=== PATIENT | male | born 1940 | race Caucasian/White ===

== ENCOUNTER 2019-12-16 01:52 | Outpatient (CLI) | payer OTHER, SELFPAY ==
[2019-12-16 18:23] LABS: SARS-CoV-2 RNA PCR Negative
== END 2019-12-16 01:53 | disposition home or self-care (01) ==
LOC: ANHCOVIDDT 01:52
PROVIDERS: PCP Internal Medicine; Visit Provider Internal Medicine Gastroenterology
DX: Z01.812 Encounter for preprocedural laboratory examination (principal); Z20.828 Contact with and (suspected) exposure to other viral communicable diseases
CPT/HCPCS: 87635; C9803; U0003

== ENCOUNTER 2019-12-18 00:51 | Day surgery (SDC) | payer OTHER, SELFPAY ==
[2019-12-10 14:47] VITALS: BMI 32.1
[2019-12-18] MEDS: LACTATED RINGERS 1,000 ML 150 ML IV CONT (08:33)
[2019-12-18] MEDS: AMPICILLIN 2 GM/NS 100 ML 2 GM/100 ML BAG IVPB (08:34)
[2019-12-18 08:38] VITALS: BP 135/85; PULSE 90; RESP 17; TEMP 36.4; O2SAT 97; BMI 32.0
--- NOTE | 2019-12-18 08:54 | WPDGICN ---
Assessment and Plan Assessment and plan (1) History of colon polyps: Code(s): Z86.010 - Personal history of colonic polyps Status: Acute Assessment and Plan: Plan is for follow-up colonoscopy at this time. In 2017 patient had multiple adenomatous colon polyps. Family history is significant his mother had colon cancer as well. Plan is for screening colonoscopy now and every 3-5 years in the future. further recommendations may be given after endoscopy. (2) Family history of colon cancer in mother: Code(s): Z80.0 - Family history of malignant neoplasm of digestive organs Status: Acute GI Consult Note Consult date/time: 12/18/19 08:54 HPI: Dayo Bernardo is a 79 year old male Seen in evaluation at the request of Dr.Paul Hunter. Patient has a history of adenomatous colon polyps removed from the colon 3 years ago. His current weight appetite bowel movements are normal. He denies abdominal pain. He has no blood in his stools. His bowel habits are described as regular. Family history is significant that his mother had colon cancer on 2 occasions. Review of Systems Review of Systems: All systems reviewed & are unremarkable except as noted in HPI and below PMFSH Past Medical History Medical History BPH (benign prostatic hyperplasia) Surgical History Surgical History History of hip replacement Family History Family History Mother Carcinoma of colon Social History Social History Smoking end date: 04/23/79 Alcohol intake: current Meds Home Medications and Allergies Home Medications Medication Instructions Recorded Confirmed Type amlodipine 10 mg PO DAILY 03/02/19 12/18/19 History finasteride 5 mg PO DAILY 03/02/19 12/18/19 History lisinopril 40 mg PO DAILY 03/02/19 12/18/19 History tadalafil [Cialis] 5 mg PO DAILY 03/02/19 12/18/19 History tamsulosin [Flomax] 0.4 mg PO HS 03/02/19 12/18/19 History terazosin 5 mg PO HS 03/02/19 12/18/19 History aspirin [Adult Low Dose Aspirin] 81 mg PO DAILY 12/10/19 12/18/19 History Allergies Allergy/AdvReac Type Severity Reaction Status Date / Time No Known Allergies Allergy Verified 12/18/19 08:26 Vital Signs Vital Signs - 24 hr 12/18/19 08:38 Temperature 97.6 F Pulse Rate 90 Respiratory Rate 17 Blood Pressure 135/85 Pulse Oximetry 97 Exam Narrative: Exam Narrative: Physical exam reveals patient to be alert. Vital signs stable. HEENT exam unremarkable. Lungs are clear to auscultation and percussion. Heart is without murmur or extra sounds. Abdominal exam bowel sounds are present soft nontender with no organomegaly. Digital external rectal exam is normal.
--- NOTE | 2019-12-18 09:09 | WPDANESEPPF ---
Anes - Initial Pre Proc Eval Procedure: Operation Date: 12/18/19 09:30 Proposed Procedures p Screening Colonoscopy - Jesus Yan MD Date/Time: 12/18/19 09:09 Surgeon: Jesus Yan MD Pre Op Diagnosis: HX COLON POLYPS, FAMILY HX COLON CA Patient Data Age: 79 Gender: M Height: 5 ft 11 in Weight: 104.2 kg Last Vital Signs Temp 97.6 F 12/18/19 08:38 Pulse 90 12/18/19 08:38 Resp 17 12/18/19 08:38 BP 135/85 12/18/19 08:38 Pulse Ox 97 12/18/19 08:38 Allergies Allergy/AdvReac Type Severity Reaction Status Date / Time No Known Allergies Allergy Verified 12/18/19 08:26 Home Medications Medication Instructions Recorded Confirmed Type amlodipine 10 mg PO DAILY 03/02/19 12/18/19 History finasteride 5 mg PO DAILY 03/02/19 12/18/19 History lisinopril 40 mg PO DAILY 03/02/19 12/18/19 History tadalafil [Cialis] 5 mg PO DAILY 03/02/19 12/18/19 History tamsulosin [Flomax] 0.4 mg PO HS 03/02/19 12/18/19 History terazosin 5 mg PO HS 03/02/19 12/18/19 History aspirin [Adult Low Dose Aspirin] 81 mg PO DAILY 12/10/19 12/18/19 History Patient hx anesthesia problems: none Family hx anesthesia problems: none PMFSH Past Medical History Medical History BPH (benign prostatic hyperplasia) Surgical History Surgical History History of hip replacement Family History Family History Mother Carcinoma of colon Social History Social History Smoking end date: 04/23/79 Alcohol intake: current Anes - Eval Final PreProcedure Day of Procedure 12/18/19 09:09 Patient weight: overweight Heart: regular rate and rhythm Lungs: clear to auscultation Airway: Mallampati scale class III Neurological: alert and oriented Last oral intake: >/= 8 hours ASA classification: II Emergent: no Anesthetic plan: proceed Anesthesia type and monitoring: general GIVS and standard monitoring Informed Consent: The patient's anesthetic plan and its attendant risks and benefits were discussed with the patient/family/POA. Questions were solicited and answers provided to the satisfaction of the patient/family/POA.
[2019-12-18 09:41] VITALS: BP 123/104; PULSE 70; RESP 19; O2SAT 93
[2019-12-18 09:51] VITALS: BP 123/104; PULSE 65; RESP 17; O2SAT 96
== END 2019-12-18 10:13 | disposition home or self-care (01) ==
PROVIDERS: PCP Internal Medicine; Visit Provider Internal Medicine Gastroenterology
PROC: 0DJD8ZZ Inspection of Lower Intestinal Tract, Via Natural or Artificial Opening Endoscopic (ICD-10-PCS; CPT 45378; principal; 2019-12-18 09:30)
DX: Z12.11 Encounter for screening for malignant neoplasm of colon (principal); Z86.010 Personal history of colon polyps; Z80.0 Family history of malignant neoplasm of digestive organs; K64.8 Other hemorrhoids
CPT/HCPCS: G0105; J0290; J2704; J7120

== ENCOUNTER 2021-06-23 20:47 | Emergency (ER) | payer OTHER, SELFPAY ==
[2021-06-23 20:50] VITALS: BP 158/82; PULSE 115; RESP 18; TEMP 36.6; O2SAT 97
[2021-06-23 21:05] VITALS: BP 145/87; PULSE 100; RESP 17; O2SAT 97
--- NOTE | 2021-06-23 21:25 | PC.NURSE ---
attempted to place Bar catheter, unable to; then attempted to place coude, unable to at this time provider aware
--- NOTE | 2021-06-23 21:51 | ED.MALEGU ---
HPI - Male Genitourinary General Chief complaint: Urogenital-Male Stated complaint: difficulty urinating Time Seen by Provider: 06/23/21 20:55 History of Present Illness HPI Narrative: Patient is a 80-year-old male who presents ER with urinary retention. This is been a recurrent issue for him. Last time was 2 years ago. Reports he drank a lot of water today and then took a nap. He has been unable to urinate since this afternoon. Reports he finished ciprofloxacin for UTI 5 days ago. Has not been having hematuria or dysuria. No pain in his groin. Reports lower abdominal discomfort that is worse with palpation and movement. Related Data Home Medications Medication Instructions Recorded Confirmed amlodipine 10 mg PO DAILY 03/02/19 12/18/19 finasteride 5 mg PO DAILY 03/02/19 12/18/19 lisinopril 40 mg PO DAILY 03/02/19 12/18/19 tadalafil [Cialis] 5 mg PO DAILY 03/02/19 12/18/19 tamsulosin [Flomax] 0.4 mg PO HS 03/02/19 12/18/19 terazosin 5 mg PO HS 03/02/19 12/18/19 aspirin [Adult Low Dose Aspirin] 81 mg PO DAILY 12/10/19 12/18/19 Allergies Allergy/AdvReac Type Severity Reaction Status Date / Time No Known Allergies Allergy Verified 06/23/21 20:52 Review of Systems Constitutional: Constitutional: Denies chills, Denies fever(s) and Denies weakness Gastrointestinal: Gastrointestinal: Reports abdominal pain, Denies nausea and Denies vomiting Genitourinary: Genitourinary: Denies hematuria, Reports oliguria, Denies dysuria and Denies urinary frequency [facility] Past Medical History Medical History (Updated 06/23/21 @ 23:07 by Eleazar Mayfield MD) BPH (benign prostatic hyperplasia) Surgical History Surgical History History of hip replacement Family History Family History Mother Carcinoma of colon Social History Social History Smoking end date: 04/23/79 Alcohol intake: current Exam Narrative: GENERAL: Well-appearing, well-nourished, and in no acute distress. HEAD: Normocephalic, atraumatic. CHEST: Clear to auscultation. No respiratory distress. HEART: Regular rate and rhythm. Normal peripheral pulses. ABDOMEN: Soft, bladder palpable at the umbilicus with tenderness. : Normal-appearing external genitalia with uncircumcised penis, no swelling to the scrotum/testicles. EXTREMITIES: Normal range of motion. No edema. SKIN: Warm, dry, no rash. NEURO: Alert and oriented x3. Course Course Emergency Course: Urinary catheter placed due to obstruction. Just over 2000 mL return. No blood. No evidence of infection. We will keep in Bar and can follow-up with urology for removal. Vital Signs Vital signs: Vital Signs Temperature 97.8 F 06/23/21 20:50 Pulse Rate 115 H 06/23/21 20:50 Respiratory Rate 18 06/23/21 20:50 Blood Pressure 158/82 H 06/23/21 20:50 Pulse Oximetry 97 06/23/21 20:50 Temperature 97.8 F 06/23/21 20:50 Pulse Rate 89 06/23/21 22:36 Respiratory Rate 16 06/23/21 22:36 Blood Pressure 138/74 06/23/21 22:36 Pulse Oximetry 99 06/23/21 22:36 MDM - Male Genitourinary Lab Data Result diagrams: 06/23/21 21:45 06/23/21 21:45 Labs: Lab Results 06/23/21 06/23/21 06/23/21 Range/Units 21:45 21:45 21:45 WBC 5.0 (4.5-10.0) K/mm3 RBC 4.88 (4.6-6.20) M/mm3 Hgb 15.4 (14.0-18.0) g/dL Hct 46.0 (42.0-52.0) % MCV 94.3 (80-100) fl MCH 31.6 (26-34) pg MCHC 33.5 (32-36) g/dl RDW 12.7 (11.5-14.5) % Plt Count 171 (150-375) k/mm3 MPV 11.1 H (7.4-10.4) fl Immature Gran % (Auto) 0.4 (0-0.5) % Neut % (Auto) 69.6 (45.5-73.1) % Lymph % (Auto) 18.0 L (18.3-44.2) % Falls % (Auto) 7.4 (2.6-8.5) % Eos % (Auto) 3.8 (0-4.4) % Baso % (Auto) 0.8 (0.2-1.2) % Lymph # (Auto) 0.90 (0.9-3.2) K/mm3 Falls # (Auto)
[2021-06-23 21:55] LABS: Basophils Percent Auto 0.8 % (0.2-1.2); Eosinophils Absolute Auto 0.2 K/mm3 (0-0.3); Eosinophils Percent Auto 3.8 % (0-4.4); Hemoglobin 15.4 g/dL (14.0-18.0); Immature Granulocyte Absolute 0.02 K/mm3 (0.00-0.031); Immature Granulocyte Percent A 0.4 % (0-0.5); Mean Corpuscular HGB Conc 33.5 g/dl (32-36); Mean Corpuscular Hemoglobin 31.6 pg (26-34); Mean Corpuscular Volume 94.3 fl (80-100); Mean Platelet Volume 11.1 fl (7.4-10.4); Monocytes Absolute Auto 0.4 K/mm3 (0.1-0.6); Monocytes Percent Auto 7.4 % (2.6-8.5); Neutrophils Absolute Auto 3.5 K/mm3 (1.3-6.7); Neutrophils Percent Auto 69.6 % (45.5-73.1); Platelet Count Result 171 k/mm3 (150-375); Red Blood Count 4.88 M/mm3 (4.6-6.20); Red Cell Distribution Width 12.7 % (11.5-14.5)
[2021-06-23 22:00] LABS: Add Urine Microscopic? YES; Appearance Urine Clear (Clear); Bilirubin Urine Negative (Negative); Blood Urine 3+ (Negative); Color Urine Straw (Yellow); Glucose Urine UA Negative (Negative); Ketones Urine Negative (Negative); Leukocyte Esterase Ur Negative LEU/UL (Negative); Mucus Urine Rare /lpf; Nitrate Urine Negative (Negative); Protein Urine Negative (Negative); Urobilinogen Urine Negative mg/dL (<2.0); WBC Urine 0-3 /hpf
[2021-06-23 22:01] LABS: Specific Grav Ur 1.004 (1.001-1.035)
[2021-06-23 22:03] LABS: Anion Gap 12 mmol/L (8-16); Blood Urea Nitrogen 18 mg/dL (9-20); Carbon Dioxide 22 mmol/L (22-30); Chloride 109 mmol/L (98-107); Estimated CRCL calculation 72 ml/min; Estimated Glomerular Filt Rate > 60; Glucose 104 mg/dL (65-110); Potassium 4.2 mmol/L (3.4-5.0); Sodium 143 mmol/L (137-145)
[2021-06-23 22:36] VITALS: BP 138/74; PULSE 89; RESP 16; O2SAT 99
[2021-06-23] MEDS: LIDOCAINE HCL 2% GEL UROJET 10 ML PKG (22:37)
== END 2021-06-23 23:40 | disposition home or self-care (01) ==
PROVIDERS: Emergency Provider Emergency Medicine; PCP Internal Medicine
DX: N40.1 Benign prostatic hyperplasia with lower urinary tract symptoms (principal); R33.8 Other retention of urine; Z79.82 Long term (current) use of aspirin; Z96.649 Presence of unspecified artificial hip joint; Z87.891 Personal history of nicotine dependence
CPT/HCPCS: 36415; 51702; 80048; 81001; 85025; 99283